=== PATIENT | male | born 1975 ===

== ENCOUNTER 2024-03-09 15:46 | Inpatient (IN) | payer OTHER, SELFPAY ==
[2024-03-09] VITALS (47 sets, daily range): BP systolic 122–253; BP diastolic 80–149; BMI 28.0
--- NOTE | 2024-03-09 08:38 | ED.GENMED ---
ED Provider Triage
<Bryce Hernandez PA-C - Last Filed: 03/09/24 08:43>
-
Patient seen by provider in Triage?: Seen in Triage
Attestation: A medical screening examination has been initiated by a qualified medical provider. Based on the assessment performed at this time, it has been determined that an emergent medical condition may exist and the patient has been informed
that further medical evaluation and possible additional diagnostic testing may be needed.
HPI: 48-year-old male presents to the emergency department due to neck pain. States he woke up wrong earlier in the week. No radiating symptoms in the arms. Also notes that earlier in the week his blood pressure was markedly elevated at the
dentist. In triage she is noted to be 253/149. He is been compliant with his metoprolol and losartan. Denies chest pain or shortness of breath, denies headache
GENERAL: Alert , in no apparent distress
EYE: No visual abnormalities.
NECK: Trachea midline
ENT: No visible abnormalities.
LUNGS: No acute respiratory distress
NEUROLOGICAL: Alert and oriented
SKIN: Skin intact. No visible changes.
MUSCULOSKELETAL: Moving extremities normally
PSYCH: Normal and appropriate interaction.
This is a medical evaluation conducted in person to initiate diagnostic evaluation and provide initial therapeutics. Please see further documentation by the treating clinician.
History of Present Illness
<Bryce Hernandez PA-C - Last Filed: 03/09/24 08:43>
General
Chief Complaint: Blood Pressure Problem
Time Seen by Provider: 03/09/24 08:47
<Darwin Young DO - Last Filed: 03/09/24 14:56>
General
Source: patient
History of Present Illness
History of Present Illness:
48-year-old male presents to the emergency room complaining of neck pain. Patient states he awoke from sleep with pain in his left neck. Nothing really seems to make it better or worse. Patient also has had elevated blood pressure. He was at a
dentist appointment yesterday and they measured his blood pressure be over 200. He does take metoprolol and losartan for blood pressure and states he has been compliant with it. He denies any chest pain, back pain, shortness of breath. Patient
states his doctor has told him to measure his blood pressure after he has been sitting and relaxing for 15 to 20 minutes because it tends to be high otherwise. He denies any numbness or tingling down his left arm.
Phy Exam
<Darwin Young DO - Last Filed: 03/09/24 14:56>
Physical Exam
Physical Exam:
General: Awake, Alert, Oriented X3. No acute distress.
Vitals: Markedly hypertensive
Head: Atraumatic
Eyes: Pupils equal, EOMI
Throat: Airway intact, no exudates
Neck: Trachea midline, no real reproducible tenderness to palpation of the left neck where the patient identifies the source of pain
Lungs: Clear and equal b/l
Heart: Regular rate, no murmurs
Abd: Soft, Nontender, No pulsatile mass
Neuro: Cranial nerves intact, muscle strength equal bilaterally, cerebellar exam normal
Skin: Warm, dry, no rash
Extremities: pulses equal b/l, no edema
Course
<Bryce Hernandez PA-C - Last Filed: 03/09/24 08:43>
Orders/Labs/Results
Orders:
Orders
03/09/24 08:57
Cardiac Monitoring- Treatment ONCE
EKG- Treatment ONCE
03/09/24 09:03
ECG [Electrocardiogram (*1)] Urgent
Reason for Study: Hypertension, Benign
Other Reason for Exam: HTN/ neck pain
Complete Blood Count/With Diff Urgent
Comprehensive Metabolic Panel Urgent
03/09/24 09:04
EKG- Treatment ONCE
03/09/24 09:08
CT Chest Angio W/wo Iv Contras Urgent
Comment:
Reason For Exam: hypertensive emergency neck pain
03/09/24 09:30
Ketorolac [Toradol] 15 mg IV NOW STA
03/09/24 09:33
Labetalol HCl [Trandate] 10 mg IV NOW STA
03/09/24 12:46
Urinalysis Urgent
Date Specimen was Collected: 03/09/24
Time Specimen was Collected: 12:41
Urine Microscopic Urgent
Date Specimen was Collected: 03/09/24
Time Specimen was Collected: 12:41
03/09/24 14:00
Nicardipine 40 mg/200 ml [Cardene] 40 mg in 200 ml IV PER PROTOCOL
Initial dose in mg/hr, then titrate:: 5
Titrate to keep:: SBP 140 - 160 mmHg
Titrate by mg/hr:: 2.5 mg/hr
Frequency of titrations (minutes):: 5-15 minutes
Maximum dose in mg/hr:: 15
Begin to taper infusion when:: Remained at goal for 2hrs
Taper by mg/hr:: 2.5 mg/hr
Frequency of taper (minutes) if patient maintains goal:: every 15-30 minutes
Taper to off?: Yes
If infusion off & no longer maintaining goal:: Contact Provider
Abnormal Lab Results
03/09/24 03/09/24
09:03 12:46
Absolute Monos (auto) 0.7 H 10^3/uL
(0.1-0.6)
Glucose 112 H mg/dl
(70-99)
ALT 76 H U/L
(0-50)
Total Protein 8.6 H g/dl
(6.3-8.2)
Urine Urobilinogen 2+ A
(Neg - 1+)
Urine Bacteria Few A
(Negative)
Urine Albumin 1+ A
(Neg - Trace)
03/09/24 09:03
03/09/24 09:03
Vital Signs
Initial and Last Documented VS:
Initial Vital Signs
Temp Pulse Resp BP Pulse Ox
98.2 F 91 20 253/149 98
03/09/24 08:38 03/09/24 08:38 03/09/24 08:38 03/09/24 08:38 03/09/24 08:38
Last Documented Vital Signs
Temp Pulse Resp BP Pulse Ox
98.2 F 84 15 160/97 96
03/09/24 08:38 03/09/24 14:30 03/09/24 14:30 03/09/24 14:30 03/09/24 14:30
darrell;Darwin Young, - Last Filed: 03/09/24 14:56>
Orders/Labs/Results
Orders:
Orders
03/09/24 08:57
Cardiac Monitoring- Treatment ONCE
EKG- Treatment ONCE
03/09/24 09:03
ECG [Electrocardiogram (*1)] Urgent
Reason for Study: Hypertension, Benign
Other Reason for Exam: HTN/ neck pain
Complete Blood Count/With Diff Urgent
Comprehensive Metabolic Panel Urgent
03/09/24 09:04
EKG- Treatment ONCE
03/09/24 09:08
CT Chest Angio W/wo Iv Contras Urgent
Comment:
Reason For Exam: hypertensive emergency neck pain
03/09/24 09:30
Ketorolac [Toradol] 15 mg IV NOW STA
03/09/24 09:33
Labetalol HCl [Trandate] 10 mg IV NOW STA
03/09/24 12:46
Urinalysis Urgent
Date Specimen was Collected: 03/09/24
Time Specimen was Collected: 12:41
Urine Microscopic Urgent
Date Specimen was Collected: 03/09/24
Time Specimen was Collected: 12:41
03/09/24 14:00
Nicardipine 40 mg/200 ml [Cardene] 40 mg in 200 ml IV PER PROTOCOL
Initial dose in mg/hr, then titrate:: 5
Titrate to keep:: SBP 140 - 160 mmHg
Titrate by mg/hr:: 2.5 mg/hr
Frequency of titrations (minutes):: 5-15 minutes
Maximum dose in mg/hr:: 15
Begin to taper infusion when:: Remained at goal for 2hrs
Taper by mg/hr:: 2.5 mg/hr
Frequency of taper (minutes) if patient maintains goal:: every 15-30 minutes
Taper to off?: Yes
If infusion off & no longer maintaining goal:: Contact Provider
Abnormal Lab Results
03/09/24 03/09/24
09:03 12:46
Absolute Monos (auto) 0.7 H 10^3/uL
(0.1-0.6)
Glucose 112 H mg/dl
(70-99)
ALT 76 H U/L
(0-50)
Total Protein 8.6 H g/dl
(6.3-8.2)
Urine Urobilinogen 2+ A
(Neg - 1+)
Urine Bacteria Few A
(Negative)
Urine Albumin 1+ A
(Neg - Trace)
03/09/24 09:03
03/09/24 09:03
Vital Signs
Initial and Last Documented VS:
Initial Vital Signs
Temp Pulse Resp BP Pulse Ox
98.2 F 91 20 253/149 98
03/09/24 08:38 03/09/24 08:38 03/09/24 08:38 03/09/24 08:38 03/09/24 08:38
Last Documented Vital Signs
Temp Pulse Resp BP Pulse Ox
98.2 F 84 15 160/97 96
03/09/24 08:38 03/09/24 14:30 03/09/24 14:30 03/09/24 14:30 03/09/24 14:30
<Darwin H. DO Hannah - Last Filed: 03/09/24 14:56>
MDM/Problems Addressed
Differential Diagnosis Includes:
Uncontrolled hypertension, hypertensive emergency, cervical strain, aortic dissection
MDM/Problems Addressed:
Patient presents with significant elevation of blood pressure. He has neck pain which seems musculoskeletal but a CT angiogram was ordered to exclude thoracic dissection or aneurysm. Fortunately this was ruled out. Chemistry show normal renal
function. Urinalysis was obtained and he does have some albumin/protein in his urine. Patient will be admitted for hypertensive emergency. Cardene drip initiated with a goal systolic blood pressure above 1 60-1 80
<Darwin H. DO Hannah - Last Filed: 03/09/24 14:56>
*Pulse Oximetry
Patient hypoxic: no
*EKG
Interpreted by ED Provider?: Yes
Comparison EKG: no comparison EKG present
Heart Rate: 77
Rate: normal
Rhythm: sinus
[place]: normal axis
Interval: normal interval
QRS Pattern: normal QRS
Ischemia: no ischemia
*Stage Set Designer Interpretation
Rate: normal
Interpretation: normal
Heart Rate: 77
Rhythm: sinus
*Critical Care Note
Total Time (30-74mins, 75-104mins- exclusive of procedures): 35 min
comment:
Critical care statement: A total of 40 minutes of critical care time was provided for this patient. This includes management of unstable vital signs, evaluation of the patient at bedside, reviewing the patient's pertinent medical records, discussion
with consultants, review of old EKGs and review of pertinent medical records. This time with separate from time utilized to perform the aforementioned documented procedures
ED Attending Note
<Bryce Hernandez PA-C - Last Filed: 03/09/24 08:43>
-
Portions of this chart may have been created with voice recognition software.� Occasional wrong word or��sound alike� substitutions may have occurred due to the inherent limitations of voice recognition software.
Discharge Plan
Departure
Patient Disposition: Admit
Date of Disposition: 03/09/24
Time of Disposition: 13:57
Admit to: ICU
Presentation/result/management discussed w/ accepting MD/DO: Hospitalist
Condition: Serious
Discharge Problem:
Hypertensive emergency
Referrals:
Reji Hammonds MD [Family Provider] -
Interventions
Interventions:
*Risk Screen - Suicide Last Done: 03/09/24 08:38
*General Assessment Last Done: 03/09/24 08:38
*Neglect/Abuse Screening Last Done: 03/09/24 08:38
*ED COVID-19 Vaccine History Last Done: 03/09/24 11:11
ED- Cardiac Assessment Last Done: 03/09/24 09:10
ED- Neurological Assessment Last Done: 03/09/24 09:10
ED- Pulmonary Assessment Last Done: 03/09/24 09:10
Discharge Date and Time
Print Language: UPPER SORBIAN
[2024-03-09 09:29] LABS: ALT (SGPT) 76 U/L (0-50); AST (SGOT) 45 U/L (17-59); Albumin 4.9 g/dl (3.5-5.0); Alkaline Phosphatase 84 U/L (38-126); Blood Urea Nitrogen 17 mg/dl (9-20); Carbon Dioxide 27 mmol/L (22-30); Chloride 102 mmol/L (98-107); Estimated Creatinine Clearance 84 ml/min; Glucose 112 mg/dl (70-99); Potassium 4.3 mmol/L (3.5-5.1); Sodium 141 mmol/L (135-145); Total Protein 8.6 g/dl (6.3-8.2); eGFR > 60.00
[2024-03-09 09:37] LABS: % Basophils 0.2 % (0-2); % Eosinophils 3.5 % (0-6); % Immature Granulocytes 0.3 % (0-0.5); % Lymphocytes 25.3 % (20.5-51.1); % Monocytes 7.1 % (1.7-9.3); % Neutrophils 63.6 % (42.2-75.2); Absolute Eosinophils 0.3 10^3/uL (0-0.7); Absolute Lymphocytes 2.4 10^3/uL (1.2-3.4); Absolute Monocytes 0.7 10^3/uL (0.1-0.6); Hematocrit 45.7 % (39.0-52.0); Hemoglobin 15.8 g/dL (13.0-18.0); Mean Corp Hgb Conc. 34.6 g/dL (33.0-37.0); Mean Corpuscular Hgb 29.3 pg (27.0-31.0); Mean Corpuscular Volume 84.6 fL (80.0-94.0); Mean Platelet Volume 9.5 fL (7.4-10.4); Nucleated Red Blood Cells % 0 % (-); Platelet Count 308 10^3/uL (130-400); Red Cell Dist. Width 13.4 % (11.5-14.5); White Blood Cell Count 9.4 10^3/uL (4.8-10.8)
[2024-03-09] MEDS: TRANDATE 10 MG IV (09:47)
[2024-03-09] MEDS: TORADOL 15 MG IV (09:47)
[2024-03-09 13:30] LABS: Urine Albumin 1+ (Neg - Trace); Urine Bilirubin Negative (Negative); Urine Color Yellow; Urine Glucose Negative (Negative); Urine Ketone Negative (Negative); Urine Leukocyte Negative (Negative); Urine Nitrite Negative (Negative); Urine Occult Blood Negative (Negative); Urine Urobilinogen 2+ (Neg - 1+)
[2024-03-09 13:37] LABS: Urine Character Clear (Clear)
[2024-03-09] MEDS: CARDENE 200 IV ×2 (14:08→20:08)
--- NOTE | 2024-03-09 14:10 | CON.CAR ---
Addendum entered and electronically signed by Darwin Garcia MD 03/09/24 16:52:
Patient seen and examined in collaboration with [facility]; agree with below.
-48-year-old male with hypertension PIA, and obesity presenting with hypertensive crisis (blood pressure 253/149 mmHg).
-The patient has been started on Cardene drip; continue.
-Continue home medications (losartan 100 mg daily and Toprol XL 50 mg daily)
-Add hydrochlorothiazide 25 mg daily and nifedipine ER 30 mg daily.
-Echocardiogram this admission.
-Check cardiac BNP, hemoglobin A1c, TSH, and lipid panel.
-laboratory monitor; will follow.
Original Note:
Consultation
Consultation Request
Date/Time Consultation Requested: 03/09/24 1300
Date/Time Consultation Performed: 03/09/24 1420
Requesting Provider: Dr. Young
Performing Provider: Darshana CAPONE for Dr. Garcia
Reason for Consultation: severe hypertension
Medical History
-
Chief Complaint: neck pain
History of Present Illness:
48 y/o male with hypertension and PIA on CPAP who presented for neck pain after sleeping wrong Tuesday to Tuesday. He was supposed to get a tooth pulled yesterday, but BP was too high, so he was placed on amoxicillin and ibuprofen in the meantime. He
came to the ER with his neck pain and CTA negative. However, BP's severely elevated. Proteinuria is noted. He was given IV labetalol and Toradol. He is ordered a Cardene drip and will be admitted for further management. He is in no distress at the
time of my assessment and denies any CP or SOB.
Past Medical History
Past Medical History: HTN and Other (PIA on CPAP)
Social History
Tobacco: Non-Smoker
Alcohol: Occasional (twisted tea - a few on the weekend)
Family History
Family History: Hypertension
Allergies / Home Medications
Allergy/AdvReac Type Severity Reaction Status Date / Time
No Known Allergies Allergy Verified 03/09/24 08:44
Bp medicines:
metoprolol XL 50 mg daily PO
losartan 100 mg PO daily
Review of Systems
-
History Source: Patient
All other systems: Negative unless noted
Musculoskeletal: Other (neck pain)
Physical Exam
Vital Signs
Temp Pulse Resp BP Pulse Ox
98.2 F 69 16 209/120 97
03/09/24 08:38 03/09/24 13:45 03/09/24 13:45 03/09/24 13:45 03/09/24 13:45
Lab Results
03/09/24 09:03
03/09/24 09:03
Physical Exam
General: Well Developed, Well Nourished and No Apparent Distress
HEENT: Normocephalic and Anicteric
Respiratory: Clear and Non Labored Respirations
Cardiac: Regular Rhythm
Musculoskeletal: No Edema
Skin: Warm and Dry
Neuro: AO x 3
Psych: Calm
Impression / Plan
-
Hypertensive emergency:
-severe HTN is noted
-proteinuria noted
-continue IV Cardene for gradual decrease in BP- this medication requires intensive monitoring - wean per protocol
-resume usual PO BP meds. Add HCTZ and Procardia.
-echo this admit
-labs ordered by primary team for further work-up
Data Reviewed
-
EKG: Tracing Personally Visualized and interpreted (NSR)
CT Scan: Report Reviewed by me (CTA: No evidence of thoracic aortic aneurysm/dissection. Possible mild cardiomegaly. Cannot exclude some left ventricular hypertrophy. Bilateral lower lobe opacification, left greater than right, most likely
representing subsegmental atelectasis. Cholelithiasis and possible diffuse fatty liver.)
Medical Tests (Nuc Med, Echo etc): Other (will order echo)
Labs: Labs Reviewed by me
[2024-03-09 14:28] LABS: Urine Bacteria Few (Negative); Urine Squamous Cell 0-2 /LPF (Few); Urine White Cell 0-2 /HPF (0-5)
[2024-03-09 14:29] LABS: Urine Red Blood Cell 0-2 /HPF (0-2)
--- NOTE | 2024-03-09 14:55 | HPS.HSE ---
Family Physician
-
Family Physician: Reji Hammonds
Chief Complaint
-
Neck pain
History of Present Illness
48-year-old man comes in because of neck pain. States pain started earlier in the week. Without radiating symptoms in the arms. Earlier in the week his blood pressure was markedly elevated at the dentist (systolic ~250). In triage BP was
253/149. He stated that he has been compliant with his metoprolol and losartan. He stated he had admit at [facility] where they performed abdominal CT and renal US and 'found nothing wrong. 'Denies chest pain or shortness of breath, denies
headache. In ED he had CT angio that did not find aortic dissection:
No evidence of thoracic aortic aneurysm/dissection.
Possible mild cardiomegaly. Cannot exclude some left ventricular hypertrophy.
Bilateral lower lobe opacification, left greater than right, most likely representing subsegmental atelectasis.
Cholelithiasis and possible diffuse fatty liver.
ECG shows: NORMAL SINUS RHYTHM, MINIMAL VOLTAGE CRITERIA FOR LVH, MAY BE NORMAL VARIANT.
Urine has albumin.
Medical History
Past Medical History
Past Medical History: Reports HTN and Other
Additional Past Medical History:
Care at [facility].
Past Surgical History: Reports None
Social History
Tobacco: Non-smoker
Alcohol: Occasional
Drug: None
Employment: Employed
Family History
Family History: Hypertension
Allergies / Home Medications
Allergies reflects when Allergies were last updated in [facility].
Home Medications with original date entered in [facility]
Allergy/Medication List:
Allergies
Allergy/AdvReac Type Severity Reaction Status Date / Time
No Known Allergies Allergy Verified 03/09/24 08:44
Home Medications
amoxicillin 500 mg tablet 500 mg PO TID 03/09/24
ibuprofen 600 mg tablet 600 mg PO Q6HPRN PRN tooth pain 03/09/24
losartan 100 mg tablet 100 mg PO DAILY 03/09/24
metoprolol succinate 50 mg tablet,extended release 24 hr 50 mg PO DAILY 03/09/24
Review of Systems
-
History Source: Patient
A 12 point ROS was completed and negative except as noted: Yes
Physical Exam
Vital Signs
Vital Signs
Temp Pulse Resp BP Pulse Ox
98.2 F 84 15 160/97 96
03/09/24 08:38 03/09/24 14:30 03/09/24 14:30 03/09/24 14:30 03/09/24 14:30
Physical Exam
General: Well Developed, Well Nourished, No Apparent Distress, Comfortable and Conversant
HEENT: NormoCephalic, Moist mucous membranes, Atraumatic, [place] Conjunctivae, Nose Appears Normal and Ears Appear Normal
Respiratory: Clear
Cardiac: S1/S2 and Regular Rhythm
GI: Soft, Non Tender and Non Distended
Musculoskeletal: No Clubbing, No Cyanosis and No Edema
Skin: Warm and Dry
Neuro: Awake, Alert, Oriented and AO x 3
Psych: Calm
Laboratory Results
-
03/09/24 09:03
03/09/24 09:03
Laboratory Results
Total Bilirubin 1.0 mg/dl (0.2-1.3) 03/09/24 09:03
AST 45 U/L (17-59) 03/09/24 09:03
ALT 76 U/L (0-50) H 03/09/24 09:03
Alkaline Phosphatase 84 U/L (38-126) 03/09/24 09:03
Data Reviewed
-
Lab Data: Labs Reviewed by me
Impression/Plan
-
IMPRESSION:
48 man with hypertensive emergency.
PLAN:
1. HTN emergency with protenuria.
Cardiology consult appreciated
Telemetry
Check troponin
R/O pheochromocytoma
Once BP is controlled on oral meds, oK to continue rest of care as outpatient.
Full code
VCD for DVTp
[2024-03-09 17:47] LABS: NT-proBNP 714 pg/ml
--- NOTE | 2024-03-09 18:45 | PTCARENOTE ---
Rec'd patient from ED around 1820. Ambulatory in room independently. Patient placed on monitor. NSR. Pulse ox 96% on RA. Vitals stable. Cardene gtt infusing at 5 mg/hr. Titrating for SBP 140-160. Admission complete. Call canas within reach.
[2024-03-09] MEDS: AMOXIL 500 MG PO ×2 (19:13→22:57)
[2024-03-09] MEDS: ORETIC 25 MG PO (19:13)
[2024-03-09] MEDS: PROCARDIA XL (EXTENDED RELEASE) 30 MG PO (19:13)
[2024-03-09 19:58] LABS: INR 1.02; PT 13.8 Sec (11.4-14.6)
[2024-03-09 19:59] LABS: APTT 30.6 Sec (23.4-35.0)
--- NOTE | 2024-03-09 20:00 | PTCARENOTE ---
Received pt via handoff. Pt AAOx3, able to MEDINA, afebrile. NSR with BP Systolic in the 160's, palpable pulses. 95% on RA with clear lung sounds. Hypoactive bowel sounds in all 4Q. Pt able to use the urinal voiding clear yellow urine. Skin CDI.
Yash gtt running see flowsheet. Call canas at bedside.
[2024-03-09 20:07] LABS: Magnesium 2.2 mg/dl (1.6-2.3); Phosphorus 3.2 mg/dl (2.5-4.5)
[2024-03-09 20:17] LABS: Troponin I < 0.012 ng/ml
[2024-03-10] VITALS (32 sets, daily range): BP systolic 107–184; BP diastolic 64–113; BMI 27.8
--- NOTE | 2024-03-10 | PTCARENOTE ---
All systems reassessed. CPAP on, and cardene gtt turned off.
[2024-03-10 03:52] LABS: Hematocrit 43.8 % (39.0-52.0); Hemoglobin 15.4 g/dL (13.0-18.0); Mean Corp Hgb Conc. 35.2 g/dL (33.0-37.0); Mean Corpuscular Hgb 28.9 pg (27.0-31.0); Mean Corpuscular Volume 82.3 fL (80.0-94.0); Mean Platelet Volume 9.4 fL (7.4-10.4); Platelet Count 319 10^3/uL (130-400); Red Blood Cell Count 5.32 10^6/uL (4.70-6.10); Red Cell Dist. Width 13.2 % (11.5-14.5); White Blood Cell Count 16.1 10^3/uL (4.8-10.8)
--- NOTE | 2024-03-10 04:00 | PTCARENOTE ---
All systems reassessed. Labs drawn and hygiene performed. Call canas at bedside.
[2024-03-10 05:06] LABS: ALT (SGPT) 76 U/L (0-50); AST (SGOT) 44 U/L (17-59); Albumin 4.8 g/dl (3.5-5.0); Alkaline Phosphatase 89 U/L (38-126); Blood Urea Nitrogen 19 mg/dl (9-20); Calcium 9.2 mg/dl (8.4-10.2); Carbon Dioxide 23 mmol/L (22-30); Chloride 99 mmol/L (98-107); Estimated Creatinine Clearance 84 ml/min; Glucose 128 mg/dl (70-99); Potassium 3.9 mmol/L (3.5-5.1); Sodium 136 mmol/L (135-145); Total Bilirubin 1.1 mg/dl (0.2-1.3); eGFR > 60.00
[2024-03-10 05:25] LABS: Troponin I < 0.012 ng/ml
--- NOTE | 2024-03-10 06:18 | CON.INTV ---
Addendum entered and electronically signed by Hannah Arriola MD 03/10/24 13:45:
Patient being transferred out of ICU. We will sign off. Please call with questions
Addendum entered and electronically signed by Hannah Arriola MD 03/10/24 10:04:
Of note, patient has mild left lower lobe atelectasis on chest x-ray and on CT imaging
Chest exam is clear
Leukocytosis noted
Likely secondary to dental infection?
Incentive spirometry for now
Original Note:
Consultation
Consultation Request
Date/Time Consultation Requested: 03/10
Date/Time Consultation Performed: 03/10
Reason for Consultation: Critical care
Medical History
-
History of Present Illness:
History obtained from the chart and from the patient. Patient is a 48-year-old male with history of hypertension, sleep apnea on CPAP therapy. He is compliant with his oral medications, ESPERANZA inhibitor, beta-dior. He was recently seen by his
dentist, was to undergo dental extraction but blood pressure was 200, extraction was delayed. This was on Tuesday prior to admission. He then developed neck pain which woke him up from sleep. Typically when his blood pressures 200s, he has no
symptoms. He brought himself into the ED. With this he denies chest pain, back pain, shortness of breath, lightheadedness, dizziness, headaches, PND, orthopnea. Upon arrival to ED, afebrile, pulse 91, breathing at 20, blood pressure 253/149, 98%.
CT angiogram was done which ruled out dissection. Patient was given Toradol, labetalol, nicardipine drip started and admitted to ICU for further management. Upon arrival to ICU, blood pressure improved to 160/97. We are asked to help from
critical care standpoint
Presently he is without complaints. He checks his blood pressure regularly at home and ranges between 140s and 160s. He has not seen his primary physician in greater than 6 months at which time losartan dose was increased from 50 mg to 100 mg. He
does not take [id number] medications. Denies any change in diet. He is compliant with his CPAP
.
PMH: Sleep apnea on CPAP. Hypertension. Poor dentition awaiting dental extraction
Past Medical History
Past Medical History: None (See above)
Past Surgical History: None (See above)
Social History
Tobacco: Non-smoker
Alcohol: Occasional
Drug: None
Personal: Single
Living: Alone
Employment: Employed
Family History
Family History: Other (No children. Parents and siblings with sleep apnea and hypertension)
Allergies / Home Medications
Allergies
Allergy/AdvReac Type Severity Reaction Status Date / Time
No Known Allergies Allergy Verified 03/09/24 08:44
Home Medications
�Medication �Instructions �Recorded �Confirmed �Last Taken �Type
amoxicillin 500 mg tablet 500 mg PO TID 03/09/24 03/09/24 03/09/24 History
ibuprofen 600 mg tablet 600 mg PO Q6HPRN PRN tooth pain 03/09/24 03/09/24 03/09/24 History
losartan 100 mg tablet 100 mg PO DAILY 03/09/24 03/09/24 03/09/24 History
metoprolol succinate 50 mg 50 mg PO DAILY 03/09/24 03/09/24 03/09/24 History
tablet,extended release 24 hr
Review of Systems
-
All other systems: Negative unless noted (Denies blood in urine or stool, vision changes)
Vitals / Labs / Diagnostic Testing
Vital Signs
Temp Pulse Resp BP Pulse Ox
97.9 F 65 13 127/91 97
03/10/24 03:30 03/10/24 05:45 03/10/24 05:45 03/10/24 05:30 03/10/24 05:45
Lab Data
03/10/24 03:36
03/10/24 03:36
Laboratory Results
03/09/24
19:40
PT 13.8
INR 1.02
APTT 30.6
Diagnostic Testing:
Physical Exam
-
HEENT: Normocephalic and Anicteric
Cardiovascular: S1/S2, Regular Rhythm, Murmur (n), Rub (n) and Peripheral Edema (n)
Respiratory: Wheeze (n), Rales (n), Rhonchi (n) and Non-Labored Respirations
GI: Soft, Non Distended and Non Tender
Neurology: Awake, Alert, Oriented and No Motor Deficits (Cranial nerves intact, pupils equal and reactive)
Skin: Good Color
General: Comfortable
Assessment
-
48-year-old male with hypertension, sleep apnea presents with neck pain, systolic pressure in the 250s. CT angiogram negative for aortic dissection. Admitted to ICU for further management
Hypertensive emergency
Systolic pressure to 50s
Initiated on Cardene
Microalbuminuria
Mild bibasilar atelectasis
Poor dentition, awaiting dental extraction
History of hypertension
Compliance with medications
Denies OTC meds, drug abuse, change in dietary habits
Sleep apnea on CPAP
Family history of sleep apnea, hypertension
Plan/recommendations
At this time, patient is critically ill but stabilized. He required Cardene drip overnight. Presently blood pressure 140s/90s. He is without symptoms.
When he was at the dentist and blood pressure was in the 200s, he had no neck pain, denied any symptoms at that time
He routinely checks his blood pressure at home, ranges between 140s and 150s
Moving forward continue with oral medications
Patient would benefit from closer follow-up, may require additional treatment for hypertension
Metanephrines pending per primary service to rule out pheochromocytoma
May benefit from renal ultrasound to rule out renal artery stenosis
Cardiology also has been consulted
Patient will continue with sleep apnea treatment. Pulmonary follow-up offered and information left in chart for sleep apnea
Okay for transfer out of ICU. Once transferred, we will sign off. Please call with questions
TCCT 31 min
[2024-03-10] MEDS: COZAAR 100 MG PO (08:00)
[2024-03-10] MEDS: PROCARDIA XL (EXTENDED RELEASE) 30 MG PO (08:00)
[2024-03-10] MEDS: AMOXIL 500 MG PO ×3 (08:01→21:50)
[2024-03-10] MEDS: ORETIC 25 MG PO (08:01)
[2024-03-10] MEDS: TOPROL XL 50 MG PO (08:01)
--- NOTE | 2024-03-10 08:09 | PTCARENOTE ---
Rec'd pt at 0700. Pt sleeping with home cpap mask on, removed by pt this am. Pt AAOx3. Monitor SR. SBP currently 150-160's, remains off Cardene gtts. AM BP meds given. Lungs CTA, pox 97% RA. +BS. Pt ordering breakfast at this time.
--- NOTE | 2024-03-10 12:16 | W.PN.CD ---
Today's Communication / Plan
-
-Blood pressure improving.
-Cardene drip discontinued.
-Continue losartan 100 mg daily and Toprol-XL 50 mg daily (these were his home medications)
-Continue hydrochlorothiazide 25 mg daily and Procardia XL 30 mg daily (these were started yesterday); can increase Procardia XL if needed for more aggressive blood pressure control--will reevaluate tomorrow.
-Echocardiogram on Tuesday.
-Will check a TSH level.
Impression / Plan
-
Hypertensive Emergency:
-proteinuria noted
-Blood pressure improving.
-Cardene drip discontinued.
-Continue losartan 100 mg daily and Toprol-XL 50 mg daily (these were his home medications)
-Continue hydrochlorothiazide 25 mg daily and Procardia XL 30 mg daily (these were started yesterday); can increase Procardia XL if needed for more aggressive blood pressure control--will reevaluate tomorrow.
-Echocardiogram on Tuesday.
-Will check a TSH level.
Physical Exam
Vital Signs/Labs
Vital Signs
Temp Pulse Resp BP Pulse Ox
97.6 F 83 13 143/87 94
03/10/24 08:15 03/10/24 12:00 03/10/24 12:00 03/10/24 12:00 03/10/24 12:00
03/09/24 03/10/24 03/11/24
06:59 06:59 06:59
Actual Weight 78.2 kg
03/10/24 03:36
03/10/24 03:36
PT 13.8 Sec (11.4-14.6) 03/09/24 19:40
INR 1.02 03/09/24 19:40
APTT 30.6 Sec (23.4-35.0) 03/09/24 19:40
Magnesium 2.2 mg/dl (1.6-2.3) 03/09/24 19:40
03/09/24
09:03
Nvc-I-Xrpmtgwlvfm Pept 714
LAB Results
03/09/24 03/09/24 03/10/24
19:40 21:17 03:36
Troponin I < 0.012 Cancelled < 0.012
Physical Exam
Constitutional: No acute distress and Comfortable
EENT: Anicteric
Cardiovascular: Rhythm & rate is regular, Pedal edema is absent, Systolic murmur absent and S1S2 is normal
Respiratory: Respiratory effort normal, Wheeze Absent and Rhonchi Present (Scant bibasilar)
GI: Soft
Neuro/Psych: AO x 3
Other: Skin (Warm, dry, intact)
Data Reviewed
-
Date of Service: March 10, 2024
EKG: Tracing Personally Visualized and interpreted (Telemetry: Sinus rhythm)
Critical Care Time (in minutes): 33
[2024-03-10 12:31] LABS: Glycohemoglobin (HgbA1c) 5.4 % (4.0-5.6)
--- NOTE | 2024-03-10 12:34 | W.PN.HOSP.TC ---
Today's Communication/Plan
-
now on oral meds - continue and titrate as needed
2ndary HTN workup pending (ECHO, TSH, Renal US, pheo workup)
Assessment / Plan
Assessment / Plan
Assessment:
Hypertensive emergency
History of hypertension (strong FH of HTN)
- requiring Cardene drip; now weaned off
- continue ARB/BB - home meds
- continue HCTZ/CCB - new meds
- Echo
- renal artery US
- TSH
- secondary workup for hypertension initiated
Mild bibasilar atelectasis
- encourage IS
Microalbuminuria
- f/u urine studies
Poor dentition, awaiting dental extraction
- continue Amoxil. follow leukocytosis. if febrile, panculture
Sleep apnea on CPAP
DVT ppx: SCDs
Code: Full
Anticipated Discharge: > 48 hours
Subjective/Interval History
-
Date of Service: March 10, 2024
no complaints
BP much improved and cardene drip off
Objective Data
-
Labs:
Laboratory Results
03/10/24
03:36
WBC 16.1 H
Hgb 15.4
Hct 43.8
Plt Count 319
Sodium 136
Potassium 3.9
Chloride 99
Carbon Dioxide 23
BUN 19
Creatinine 1.0
Glucose 128 H
Calcium 9.2
Total Bilirubin 1.1
AST 44
ALT 76 H
Alkaline Phosphatase 89
Vital Signs:
Vital Signs
Temp Pulse Resp BP Pulse Ox
97.6 F 76 17 143/87 94
03/10/24 08:15 03/10/24 12:30 03/10/24 12:30 03/10/24 12:00 03/10/24 12:30
I&O
03/09/24 03/10/24 03/11/24
06:59 06:59 06:59
Intake Total 277.5 / 277.5 240 / 240
Output Total 700 / 700 800 / 800
Balance -422.5 / -422.5 -560 / -560
Physical Exam
-
General: No Apparent Distress
HEENT: Normocephalic and Atraumatic
Respiratory: Negative Wheezes
Cardiac: Regular Rhythm and S1/S2
GI: Soft and Nontender
Genito-urinary: No Costovertebral Tender
Musculoskeletal: No Edema
Neuro: AO x 3
Hematologic / Lymphatic: No Lymphadenopathy
Psych: Calm
Data Reviewed
-
Total Time Spent with Patient (in minutes): 41
Labs: Labs Reviewed by me
[2024-03-10 12:54] LABS: Amphetamines Negative (Negative); Barbiturates Negative (Negative); Benzodiazepines Negative (Negative); Buprenorphine Negative (Negative); Cocaine Negative (Negative); Marijuana Negative (Negative); Methadone Negative (Negative); Methamphetamines Negative (Negative); Opiates Negative (Negative); Phencyclidine Negative (Negative); Tricyclic Antidepressants Negative (Negative)
[2024-03-10 13:13] LABS: Microalbumin, Random Urine 0.8 mg/dl (0.6-1.7); Microalbumin/creatinine Ratio 14.9 mg/g
--- NOTE | 2024-03-10 19:49 | PTCARENOTE ---
Received pt via handoff. Pt AAOx3, able to MEDINA, afebrile. NSR with BP Systolic in the 140's, palpable pulses. 95% on RA with clear lung sounds. Hypoactive bowel sounds in all 4Q. Pt able to use the urinal voiding clear yellow urine. Skin CDI.. Call
canas at bedside.
--- NOTE | 2024-03-10 22:45 | PTCARENOTE ---
Pt arrived to 4E from ICU. Pt is AAOx3, VSS, and complains of 3/10 pain in his neck- RN given Tylenol. Pt is oriented to unit with call canas within reach.
[2024-03-10] MEDS: TYLENOL 650 MG PO (23:41)
[2024-03-11] VITALS (7 sets, daily range): BP systolic 134–166; BP diastolic 80–106; BMI 27.7
[2024-03-11] MEDS: PROCARDIA XL (EXTENDED RELEASE) 30 MG PO (00:39)
--- NOTE | 2024-03-11 05:23 | W.PN.UPDATE ---
Update Note
Progress Note Update
RN reported 184/102 HR 67. Patient anxious about BP being high. reports headache, no other complaints. Tylenol given. Will add another dose of Procardia XL 30mg. BP 152/100 HR 90 at present.
[2024-03-11 07:26] LABS: Hematocrit 46.2 % (39.0-52.0); Mean Corp Hgb Conc. 34.6 g/dL (33.0-37.0); Mean Corpuscular Volume 83.7 fL (80.0-94.0); Platelet Count 313 10^3/uL (130-400); Red Blood Cell Count 5.52 10^6/uL (4.70-6.10); Red Cell Dist. Width 13.6 % (11.5-14.5); White Blood Cell Count 11.9 10^3/uL (4.8-10.8)
[2024-03-11 07:45] LABS: Blood Urea Nitrogen 32 mg/dl (9-20); Calcium 9.4 mg/dl (8.4-10.2); Carbon Dioxide 25 mmol/L (22-30); Chloride 97 mmol/L (98-107); Estimated Creatinine Clearance 59 ml/min; Glucose 99 mg/dl (70-99); HDL Cholesterol 31 mg/dl; LDL Cholesterol, Calculated 157 mg/dl; Potassium 4.2 mmol/L (3.5-5.1); Sodium 134 mmol/L (135-145); Total Cholesterol 227 mg/dl (50-199); Triglyceride 199 mg/dl (10-149); Very Low Density Lipoprotein 39 mg/dl (0-30); eGFR > 60.00
[2024-03-11 08:17] LABS: TSH 1.25 uIU/ml (0.47-4.68)
[2024-03-11] MEDS: ORETIC PO (09:02)
[2024-03-11] MEDS: PROCARDIA XL (EXTENDED RELEASE) PO (09:03)
[2024-03-11] MEDS: AMOXIL 500 MG PO ×3 (09:03→22:07)
[2024-03-11] MEDS: TOPROL XL 50 MG PO (10:00)
[2024-03-11] MEDS: COZAAR 100 MG PO (10:00)
[2024-03-11] MEDS: PROCARDIA XL (EXTENDED RELEASE) 60 MG PO (10:02)
[2024-03-11] MEDS: TYLENOL 650 MG PO (10:33)
--- NOTE | 2024-03-11 11:10 | W.PN.HOSP.TC ---
Today's Communication/Plan
-
continue BP meds except HCTZ
await Echo, Renal Artery US
await secondary workup
Assessment / Plan
Assessment / Plan
Assessment:
Hypertensive emergency
History of hypertension (strong FH of HTN)
- requiring Cardene drip; now weaned off
- continue ARB/BB - home meds
- continue CCB - new meds
- add Imdur today
- hold HCTZ with Cr increase
- Echo: pending
- renal artery US: pending
- secondary workup for hypertension initiated; send-outs with results likely after DC
- TSH normal
PASQUALE - likely pre-renal from HCTZ
- follow BMP
Mild bibasilar atelectasis
- encourage IS
Microalbuminuria
- f/u urine studies
Poor dentition, awaiting dental extraction
- continue Amoxil. follow leukocytosis. if febrile, panculture
- OP Dental f/u for planned extractions
Sleep apnea on CPAP
Hyperlipidemia
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
DVT ppx: SCDs
Code: Full
Anticipated Discharge: 24 - 48 hours
Subjective/Interval History
-
Date of Service: March 11, 2024
elevated BP overnight, got 1 additional Nifedipine
BP 154/86 currently
denies CP or SOB
Objective Data
-
Labs:
Laboratory Results
03/11/24 03/11/24
06:00 06:01
WBC 11.9 H
Hgb 16.0
Hct 46.2
Plt Count 313
Sodium 134 L
Potassium 4.2
Chloride 97 L
Carbon Dioxide 25
BUN 32 H
Creatinine 1.4 H
Glucose 99
Calcium 9.4
Vital Signs:
Vital Signs
Temp Pulse Resp BP Pulse Ox
97.5 F 93 20 154/86 97
03/11/24 11:05 03/11/24 11:05 03/11/24 11:05 03/11/24 11:05 03/11/24 07:05
I&O
03/10/24 03/11/24 03/12/24
06:59 06:59 06:59
Intake Total 277.5 / 277.5 840 / 840
Output Total 700 / 700 1350 / 1350
Balance -422.5 / -422.5 -510 / -510
Physical Exam
-
General: No Apparent Distress
HEENT: Normocephalic and Atraumatic
Respiratory: Negative Wheezes
Cardiac: Regular Rhythm and S1/S2
GI: Soft and Nontender
Musculoskeletal: No Edema
Neuro: AO x 3
Hematologic / Lymphatic: No Lymphadenopathy
Psych: Calm
Data Reviewed
-
Total Time Spent with Patient (in minutes): 42
Labs: Labs Reviewed by me
--- NOTE | 2024-03-11 11:51 | W.PN.CD ---
Today's Communication / Plan
-
-Continue losartan 100 mg daily and Toprol-XL 50 mg daily (these were his home medications).
-Discontinue HCTZ (patient has developed prerenal azotemia).
-Increase Procardia XL to 60 mg daily.
-Will add Imdur 30 mg daily, uptitrate as needed; may ultimately need to add hydralazine.
-Will obtain echocardiogram tomorrow.
Impression / Plan
-
Hypertensive Emergency:
-proteinuria noted
-Continue losartan 100 mg daily and Toprol-XL 50 mg daily (these were his home medications).
-Discontinue HCTZ (patient has developed prerenal azotemia).
-Increase Procardia XL to 60 mg daily.
-Will add Imdur 30 mg daily, uptitrate as needed; may ultimately need to add hydralazine.
-Will obtain echocardiogram tomorrow.
-TSH normal.
Hypercholesterolemia:
-Mildly elevated.
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
-Can manage as outpatient.
Obesity/PIA.
-On CPAP.
-Weight loss recommended.
Physical Exam
Vital Signs/Labs
Vital Signs
Temp Pulse Resp BP Pulse Ox
97.5 F 93 20 154/86 97
03/11/24 11:05 03/11/24 11:05 03/11/24 11:05 03/11/24 11:05 03/11/24 07:05
03/10/24 03/11/24 03/12/24
06:59 06:59 06:59
Actual Weight 78.2 kg 77.706 kg
03/11/24 06:01
03/11/24 06:00
PT 13.8 Sec (11.4-14.6) 03/09/24 19:40
INR 1.02 03/09/24 19:40
APTT 30.6 Sec (23.4-35.0) 03/09/24 19:40
Magnesium 2.2 mg/dl (1.6-2.3) 03/09/24 19:40
Triglycerides 199 mg/dl (10-149) H 03/11/24 06:00
LDL Cholesterol, Calc 157 mg/dl 03/11/24 06:00
VLDL Cholesterol, Calc 39 mg/dl (0-30) H 03/11/24 06:00
HDL Cholesterol 31 mg/dl 03/11/24 06:00
TSH 1.25 uIU/ml (0.47-4.68) 03/11/24 06:01
03/09/24
09:03
Noy-I-Dohniajqbww Pept 714
LAB Results
03/09/24 03/09/24 03/10/24
19:40 21:17 03:36
Troponin I < 0.012 Cancelled < 0.012
Physical Exam
Constitutional: No acute distress and Comfortable
EENT: Anicteric
Cardiovascular: Rhythm & rate is regular, Pedal edema is absent, Systolic murmur absent and S1S2 is normal
Respiratory: Respiratory effort normal and Rhonchi Present
GI: Soft and Non tender
Neuro/Psych: AO x 3
Other: Skin (Warm, dry, intact)
Data Reviewed
-
Date of Service: March 11, 2024
EKG: Tracing Personally Visualized and interpreted (Telemetry: Sinus rhythm)
Medical Tests (PFT, Pathology etc): Discussed with Physician (Primary Hospitalist) and Discussed with Nurse
Labs: Labs Reviewed by me
[2024-03-11] MEDS: IMDUR (EXTENDED RELEASE) 30 MG PO (11:58)
[2024-03-12] MEDS: TYLENOL 650 MG PO (00:18)
[2024-03-12 03:30] VITALS: BP 137/93
[2024-03-12 06:00] VITALS: BMI 27.8
[2024-03-12 07:25] VITALS: BP 138/89
[2024-03-12 07:46] LABS: Hematocrit 44.7 % (39.0-52.0); Hemoglobin 15.4 g/dL (13.0-18.0); Mean Corp Hgb Conc. 34.5 g/dL (33.0-37.0); Mean Corpuscular Volume 84.2 fL (80.0-94.0); Mean Platelet Volume 9.7 fL (7.4-10.4); Platelet Count 276 10^3/uL (130-400); Red Blood Cell Count 5.31 10^6/uL (4.70-6.10); Red Cell Dist. Width 13.6 % (11.5-14.5); White Blood Cell Count 10.6 10^3/uL (4.8-10.8)
[2024-03-12 08:12] LABS: Blood Urea Nitrogen 37 mg/dl (9-20); Calcium 9.4 mg/dl (8.4-10.2); Carbon Dioxide 24 mmol/L (22-30); Chloride 96 mmol/L (98-107); Estimated Creatinine Clearance 59 ml/min; Glucose 96 mg/dl (70-99); Potassium 4.2 mmol/L (3.5-5.1); Sodium 134 mmol/L (135-145); eGFR > 60.00
[2024-03-12] MEDS: IMDUR (EXTENDED RELEASE) 30 MG PO (09:15)
[2024-03-12] MEDS: PROCARDIA XL (EXTENDED RELEASE) 60 MG PO (09:15)
[2024-03-12] MEDS: AMOXIL 500 MG PO (09:15)
[2024-03-12] MEDS: COZAAR 100 MG PO (09:16)
[2024-03-12] MEDS: TOPROL XL 50 MG PO (09:18)
[2024-03-12] MEDS: FLUSH (NSS) 1 FLUSH IV ×2 (09:18→09:19)
--- NOTE | 2024-03-12 09:21 | W.PN.HOSP.TC ---
Today's Communication/Plan
-
hopefully dc later today if cleared by cards and after results of Echo/Renal artery US reviewed
Assessment / Plan
Assessment / Plan
Assessment:
Hypertensive emergency
History of hypertension (strong FH of HTN)
- requiring Cardene drip; now weaned off
- continue ARB/BB - home meds
- continue CCB/Imdur - new meds
- stopped HCTZ with Cr increase
- Echo: pending
- renal artery US: pending
- secondary workup for hypertension initiated; send-outs with results likely after DC.
- UDS neg
- TSH normal
PASQUALE - likely pre-renal from HCTZ
- follow BMP; Cr 1.4 and stable
- repeat BMP slip in 1 week with PCP to get results
Mild bibasilar atelectasis
- encourage IS
Microalbuminuria
- f/u urine studies
Poor dentition, awaiting dental extraction
- continue Amoxil. follow leukocytosis. if febrile, panculture
- OP Dental f/u for planned extractions
Sleep apnea on CPAP
Hyperlipidemia
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
- OP f/u for management
DVT ppx: SCDs
Code: Full
Anticipated Discharge: Today
Subjective/Interval History
-
Date of Service: March 12, 2024
denies any new complaints at present
Objective Data
-
Labs:
Laboratory Results
03/12/24
07:25
WBC 10.6
Hgb 15.4
Hct 44.7
Plt Count 276
Sodium 134 L
Potassium 4.2
Chloride 96 L
Carbon Dioxide 24
BUN 37 H
Creatinine 1.4 H
Glucose 96
Calcium 9.4
Vital Signs:
Vital Signs
Temp Pulse Resp BP Pulse Ox
97.0 F 89 18 138/89 92
03/12/24 07:25 03/12/24 07:25 03/12/24 07:25 03/12/24 07:25 03/12/24 07:25
I&O
03/11/24 03/12/24 03/13/24
06:59 06:59 06:59
Intake Total 840 / 840 2400 / 2400
Output Total 1350 / 1350
Balance -510 / -510 2400 / 2400
Physical Exam
-
General: No Apparent Distress
HEENT: Normocephalic and Atraumatic
Respiratory: Negative Wheezes
Cardiac: Regular Rhythm and S1/S2
GI: Soft and Nontender
Genito-urinary: No Costovertebral Tender
Musculoskeletal: No Edema
Neuro: AO x 3
Psych: Calm
Data Reviewed
-
Total Time Spent with Patient (in minutes): 42
Labs: Labs Reviewed by me
[2024-03-12 11:20] VITALS: BP 143/89
--- NOTE | 2024-03-12 11:53 | W.PN.CD ---
Today's Communication / Plan
-
Continue current medical therapy
Impression / Plan
-
BACKGROUND: 48M with HTN and PIA on CPAP admitted with HTN urgency.
Hypertensive emergency - resolved
-Continue losartan 100 mg daily and Toprol-XL 50 mg daily (these were his home medications).
-Discontinue HCTZ (patient has developed prerenal azotemia)
-Added this admission: Procardia XL 60 mg daily & Imdur 30 mg daily
-Metanephrines are pending, potassium normal this admission
-CT negative for dissection and PE
-Echocardiogram stable with mild cLVH
-Renal ultrasound without renal artery stenosis
Hypercholesterolemia, chronic
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
-ASCVD risk intermediate (11.1% 10-year risk) with current data
PIA, on CPAP - continue
Overweight, weight loss recommended
SUBJECTIVE:
Denies CP, SOB, and dizziness.
Physical Exam
Vital Signs/Labs
Vital Signs
Temp Pulse Resp BP Pulse Ox
97.5 F 82 20 143/89 96
03/12/24 11:20 03/12/24 11:20 03/12/24 11:20 03/12/24 11:20 03/12/24 11:20
03/11/24 03/12/24 03/13/24
06:59 06:59 06:59
Actual Weight 77.706 kg 78.075 kg
03/12/24 07:25
03/12/24 07:25
PT 13.8 Sec (11.4-14.6) 03/09/24 19:40
INR 1.02 03/09/24 19:40
APTT 30.6 Sec (23.4-35.0) 03/09/24 19:40
Magnesium 2.2 mg/dl (1.6-2.3) 03/09/24 19:40
Triglycerides 199 mg/dl (10-149) H 03/11/24 06:00
LDL Cholesterol, Calc 157 mg/dl 03/11/24 06:00
VLDL Cholesterol, Calc 39 mg/dl (0-30) H 03/11/24 06:00
HDL Cholesterol 31 mg/dl 03/11/24 06:00
TSH 1.25 uIU/ml (0.47-4.68) 03/11/24 06:01
03/09/24
09:03
Wzj-N-Vozuaxxkzlk Pept 714
LAB Results
03/09/24 03/09/24 03/10/24
19:40 21:17 03:36
Troponin I < 0.012 Cancelled < 0.012
Physical Exam
Constitutional: No acute distress and Comfortable
EENT: Anicteric and Moist mucous membranes
Cardiovascular: Rhythm & rate is regular, Pedal edema is absent, S1S2 is normal and Murmur/rub/gallop absent
Respiratory: Respiratory effort normal and Lungs clear to auscul.
GI: Soft, Distention absent, Flat, Non tender and Normal bowel sounds
Neuro/Psych: AO x 3
Other: Skin (Warm and dry without edema)
Data Reviewed
-
Date of Service: March 12, 2024
--- NOTE | 2024-03-12 12:57 | W.DS.TRANS ---
DC Summary - Site Director
-
Discharge Instructions:
Discharge Diagnosis/Procedures hypertensive emergency
Diet 2 Gram Sodium,Low Cholesterol
Activity As tolerated
Bathing Restrictions None
Blood Work repeat BMP with PCP - slip given
Instructions:
Stand-Alone Forms:
Changes to Home Medications: No
Discharge Medications:
DC Medications w/original date entered in [facility]
amoxicillin 500 mg tablet 500 mg PO TID 03/09/24
ibuprofen 600 mg tablet 600 mg PO Q6HPRN PRN tooth pain 03/09/24
isosorbide mononitrate 30 mg tablet,extended release 24 hr 30 mg PO DAILY #30 tabs 03/12/24
losartan 100 mg tablet 100 mg PO DAILY #30 tabs 03/12/24
metoprolol succinate 50 mg tablet,extended release 24 hr 50 mg PO DAILY #30 tabs 03/12/24
nifedipine 60 mg tablet,extended release 60 mg PO DAILY #30 tabs 03/12/24
Home Medication Changes
Pending Results: No
Total time spent discharging patient (in min): 41
--- NOTE | 2024-03-12 13:03 | CM ---
Patient seen at bedside. Patient stated that he lives alone and drove himself to the hospital. Patient stated that he has a CPAP at home but no other DME. Patient lives in a one bedroom, no steps into home. Patient PCP is Dr. Hammonds from [facility]. Patient uses [facility] [address] [place]. CM will continue to follow for discharge planning needs.
Plan; home with no needs.
== END 2024-03-12 15:23 | disposition home or self-care (01) | DRG 305 ==
LOC: 4 EAST ACU 15:46
PROVIDERS: Physician Assistant; ADMITTING PHYSICIAN Internal Medicine; ATTENDING PHYSICIAN Internal Medicine; CONSULT PHYSICIAN Internal Medicine; CONSULT PHYSICIAN Internal Medicine Critical Care Medicine; EMERGENCY PHYSICIAN Emergency Medicine; FAMILY PHYSICIAN Family Medicine
DX: I16.1 Hypertensive emergency (principal); N17.9 Acute kidney failure, unspecified; J98.11 Atelectasis; E78.00 Pure hypercholesterolemia, unspecified; G47.33 Obstructive sleep apnea (adult) (pediatric); E78.5 Hyperlipidemia, unspecified
CPT/HCPCS: 71045; 71275; 80048; 80053; 80061; 80306; 81003; 81015; 82043; 82384; 82570; 83036; 83735; 83835; 83880; 84100; 84443; 84484; 85025; 85027; 85610; 85730; 93005; 93306; 93975; 96365; 96366; 96375; 99291; Q9967